=== PATIENT | male | born 1965 | race Caucasian/White ===

== ENCOUNTER 2019-12-17 17:19 | Outpatient (REF) | payer MEDICAID, SELFPAY ==
[2019-12-17 19:32] LABS: HCT 39.3 % (40.0-50.0); HGB 13.5 g/dL (13.5-17.5); Mean Corp. HGB Concentration 34.4 g/dL (32.0-36.0); Mean Corpuscular Hemoglobin 31.9 pg (27.0-33.0); Mean Corpuscular Volume 92.9 fL (80-95); Mean Platelet Volume 10.5 fL (8.0-11.0); Platelet Count 291 x1000/uL (130-400); RBC 4.23 m/cumm (4.50-6.00); RBC Distribution Width 12.6 % (11.8-14.1); White Blood Cell Count 6.96 k/cumm (4.4-10.8)
[2019-12-17 19:54] LABS: ALT 49 U/L (16-63); AST 41 U/L (15-37); Albumin 3.9 g/dL (3.4-5.0); Alkaline Phosphatase 72 U/L (46-116); Anion Gap 10.2 mmol/L (3-11); BUN 15 mg/dL (7-18); Bilirubin, Total 0.3 mg/dL (0.2-1.0); CO2 26.8 mmol/L (21.0-32.0); CREATININE 1.25 mg/dL (0.70-1.30); Calcium 8.6 mg/dL (8.5-10.1); Chloride 109 mmol/L (98-107); Creatine Kinase 194 U/L (39-308); Estimated GFR 59.97 (mL/min/1.73m2); Glucose 101 mg/dL (74-106); Potassium 4.2 mmol/L (3.5-5.1); Sodium 146 mmol/L (136-145); TSH (W/Ref FT4) 1.48 uIU/mL (0.36-3.74); Total Protein 6.6 g/dL (6.4-8.2)
[2019-12-19 10:07] LABS: Hepatitis C Ab w Rflx HCV PCR Negative (Negative)
[2019-12-19 10:10] LABS: HIV-1/2 Ag & Ab Screen Negative (Negative)
== END 2019-12-17 17:39 ==
LOC: NCHCN 17:19
PROVIDERS: PCP Nurse Practitioner Family; Visit Provider Nurse Practitioner Family
DX: R53.83 Other fatigue (principal); Z11.4 Encounter for screening for human immunodeficiency virus [HIV]; Z11.59 Encounter for screening for other viral diseases
CPT/HCPCS: 80053; 82550; 85027; 86803; 87389; 84443

== ENCOUNTER 2019-12-25 15:39 | Outpatient (REF) | payer MEDICAID, SELFPAY ==
[2019-12-29 13:32] LABS: Lyme Ab w Rflx to Lyme Confirm Negative (Negative)
[2019-12-30 14:52] LABS: Testosterone, Free 5.83 ng/dL (3.87-14.7); Testosterone, Total 265 ng/dL (240-950)
== END 2019-12-25 15:59 ==
LOC: NCHCN 15:39
PROVIDERS: PCP Nurse Practitioner Family; Visit Provider Nurse Practitioner Family
DX: R53.83 Other fatigue (principal); Z86.19 Personal history of other infectious and parasitic diseases
CPT/HCPCS: 84402; 84403; 86618

== ENCOUNTER 2020-03-26 09:08 | Outpatient (CLI) | payer MEDICAID, SELFPAY ==
[2020-03-27 15:51] LABS: COVID-19 RT-PCR UVMMC Result Negative (Negative)
== END 2020-03-26 09:28 ==
PROVIDERS: PCP Nurse Practitioner Family; Visit Provider Nurse Practitioner Family
DX: Z11.59 Encounter for screening for other viral diseases (principal); Z01.818 Encounter for other preprocedural examination
CPT/HCPCS: U0003

== ENCOUNTER 2020-12-17 18:24 | Outpatient (REF) | payer MEDICAID, SELFPAY ==
[2020-12-17 19:07] LABS: TSH (W/Ref FT4) 2.93 uIU/mL (0.36-3.74)
[2020-12-20 05:09] LABS: Vitamin D 25 Total 54.1 ng/ml (30-100)
[2020-12-23 12:35] LABS: Testosterone, Free 8.47 ng/dL (3.87-14.7); Testosterone, Total 292 ng/dL (240-950)
== END 2020-12-17 18:44 ==
LOC: NCHCN 18:24
PROVIDERS: PCP Nurse Practitioner Family; Visit Provider Nurse Practitioner Family
DX: E03.9 Hypothyroidism, unspecified (principal); E55.9 Vitamin D deficiency, unspecified; R53.83 Other fatigue
CPT/HCPCS: 82306; 84402; 84403; 84443

== ENCOUNTER 2021-05-03 18:45 | Outpatient (REF) | payer MEDICAID, SELFPAY ==
[2021-05-03 19:35] LABS: HGB 13.4 g/dL (13.5-17.5); MCH 32.6 pg (27.0-33.0); MCHC 34.4 % (32.0-36.0); MCV 94.9 fL (80-95); MPV 11.1 fL (8.0-11.0); Platelet Count 229 10^3/uL (130-400); RBC 4.11 10^6/uL (4.36-5.78); RDW 12.3 % (11.8-14.1); RDW-SD 43.1 fL; WBC 7.74 10^3/uL (4.4-10.8)
[2021-05-03 19:57] LABS: Anion Gap 8.4 mmol/L (3-11); BUN 22 mg/dL (7-18); CO2 27.6 mmol/L (21.0-32.0); CREATININE 1.5 mg/dL (0.70-1.30); Calcium 9.2 mg/dL (8.5-10.1); Calculated LDL 110 mg/dL (<100); Chloride 106 mmol/L (98-107); Cholesterol 184 mg/dL (<200); Estimated GFR 48.24 (mL/min/1.73m2); Glucose 93 mg/dL (74-106); HDL Cholesterol 61 mg/dL (40-60); Potassium 4.7 mmol/L (3.5-5.1); Sodium 142 mmol/L (136-145); Triglyceride 68 mg/dL (<150)
== END 2021-05-03 18:46 | disposition home or self-care (01) ==
LOC: NCHCN 18:45
PROVIDERS: PCP Nurse Practitioner Family; Visit Provider Nurse Practitioner Family
DX: Z13.220 Encounter for screening for lipoid disorders (principal); Z13.228 Encounter for screening for other metabolic disorders; Z00.00 Encounter for general adult medical examination without abnormal findings
CPT/HCPCS: 80048; 80061; 85027

== ENCOUNTER 2021-05-06 17:54 | Outpatient (REF) | payer MEDICAID, SELFPAY ==
[2021-05-06 19:27] LABS: Iron 92 ug/dL (65-175); Total Iron Binding Capacity 291 ug/dL (250-450); Transferrin Sat 32 % (20-55)
[2021-05-06 19:41] LABS: Ferritin 108 ng/mL (26-388)
[2021-05-09 10:11] LABS: PSA, Screening 0.4 ng/mL (0.0-3.5)
== END 2021-05-06 17:55 | disposition home or self-care (01) ==
LOC: NCHCN 17:54
PROVIDERS: PCP Nurse Practitioner Family; Visit Provider Nurse Practitioner Family
DX: E03.9 Hypothyroidism, unspecified (principal); R53.83 Other fatigue; F32.9 Major depressive disorder, single episode, unspecified; E29.1 Testicular hypofunction; M25.571 Pain in right ankle and joints of right foot; Z12.5 Encounter for screening for malignant neoplasm of prostate
CPT/HCPCS: 84153; 84402; 84403; 82728; 83540; 83550

== ENCOUNTER 2021-08-08 16:32 | Outpatient (REF) | payer MEDICAID, SELFPAY ==
[2021-08-15 13:47] LABS: Testosterone, Free 14.7 ng/dL (3.87-14.7); Testosterone, Total 319 ng/dL (240-950)
== END 2021-08-08 16:33 | disposition home or self-care (01) ==
LOC: NCHCN 16:32
PROVIDERS: PCP Nurse Practitioner Family; Visit Provider Nurse Practitioner Family
DX: E29.1 Testicular hypofunction (principal); F32.9 Major depressive disorder, single episode, unspecified; G47.8 Other sleep disorders
CPT/HCPCS: 84402; 84403

== ENCOUNTER 2021-10-19 10:44 | Emergency (ER) | payer MEDICAID, SELFPAY ==
[2021-10-19 10:50] VITALS: BP 141/68; PULSE 68; RESP 16; TEMP 36.3; O2SAT 99
--- NOTE | 2021-10-19 11:00 | DI.RAD_ITS ---
Exam(s) XR ANKLE RT COMPLETE EXAM: XR ANKLE RT COMPLETE CLINICAL HISTORY: Fall, Swelling. TECHNIQUE: 2D digital imaging was performed of the right ankle. Three images were obtained. AP, la teral and oblique views were obtained. COMPARISON: No exams were available for comparison FINDINGS: BONES: No acute fracture is present. No bony destructive lesion is seen. JOINTS: The ankle mortise is normally aligned. SOFT TISSUE: Normal. IMPRESSION: Unremarkable radiographs of the right ankle. DATA REPOSITORY: RADIATION DOSE DELIVERED:
--- NOTE | 2021-10-19 11:00 | DI.RAD_ITS ---
Exam(s) XR KNEE RT 3V AP,LAT,JO-ANN EXAM: XR KNEE RT 3V AP,LAT,JO-ANN CLINICAL HISTORY: Pain, Fall. TECHNIQUE: 2D digital imaging was performed of the right knee. Three views obtained. AP, PA tunnel and lateral views were obtained. COMPARISON: No exams were available for comparison FINDINGS: BONES: No acute fracture is present. No bony destructive lesion is seen. JOINTS: The knee is normally aligned. No joint effusion is seen. SOFT TISSUE: Normal. IMPRESSION: Unremarkable radiographs of the right knee. DATA REPOSITORY: RADIATION DOSE DELIVERED:
--- NOTE | 2021-10-19 11:00 | DI.RAD_ITS ---
Exam(s) XR KNEE LT 3V AP,LAT,JO-ANN EXAM: XR KNEE LT 3V AP,LAT,JO-ANN CLINICAL HISTORY: Pain, Fall. TECHNIQUE: 2D digital imaging was performed of the left knee. Three images were obtained. AP, PA t unnel and lateral views were obtained. COMPARISON: CR XR KNEE RT 3V AP,LAT,JO-ANN from 10/19/2021 FINDINGS: BONES: No acute fracture is present. No bony destructive lesion is seen. JOINTS: The knee is normally aligned. No joint effusion is seen. SOFT TISSUE: Normal. IMPRESSION: Normal radiographs of the left knee. DATA REPOSITORY: RADIATION DOSE DELIVERED:
--- NOTE | 2021-10-19 11:12 | ED.GENADUL_ITS ---
Discharge Plan Disposition Patient Disposition: HOME Condition: Stable Discharge Details Clinical Impression: Left knee sprain, Mild sprain of right ankle, Fall on and from ladder, initial encounter Primary Care Provider: Nidhi Moss ED Provider: Deja Erickson Home Meds and New Rx's Prescriptions: No Action levothyroxine 100 mcg Tablet 100 mcg PO DAILY RF: 0 bupropion HCl 100 mg Tablet 100 mg PO DAILY RF: 0 fluoxetine [Prozac] 20 mg Capsule 20 mg PO DAILY RF: 0 Discharge Instructions Instructions: Ankle Sprain (ED), Knee Sprain (ED), Fall Prevention (ED) Additional Instructions: X-rays today show no acute abnormalities, effusion or malalignment. Rest, ice, compression, elevation. Wear the splint as directed for comfort. Weight bearing as tolerated. Please take Tylenol or Ibuprofen with food every 4-6 hours as needed for pain and swelling. Follow-up with orthopedics as needed for continued pain. Follow up with primary care provider in 3-5 days. Return to ED sooner if any worsening or concerns. Increase oral fluids. Stand Alone Forms: Work Release Referrals: Nidhi Moss [Primary Care Provider] - Robert Liu MD [ [facility] STAFF PHYSICIAN] - 2 weeks Medical Decision Making 56-year-old male presents to the ER with chief complaint of bilateral knee pain and right ankle pain status post a fall off a ladder yesterday. Patient reports he fell from approximate height of 4 feet landing on his feet and falling backwards. He denies hitting his head or loss of consciousness. He reports being momentarily stunned after fall, he is complaining of left knee pain and swelling and increased pain with weightbearing and flexion. Also complaining of some milder right knee pain and right ankle pain to the lateral malleolus. He did take ibuprofen last night did not take anything this morning prior to arrival. On initial exam he has no obvious deformity. He is alert and oriented x3. No other injuries or associated symptoms noted. X-rays and Tylenol ordered. EXAM: XR KNEE RT 3V AP,LAT,JO-ANN CLINICAL HISTORY: Pain, Fall. TECHNIQUE: 2D digital imaging was performed of the right knee. Three views obtained. AP, PA tunnel and lateral views were obtained. COMPARISON: No exams were available for comparison FINDINGS: BONES: No acute fracture is present. No bony destructive lesion is seen. JOINTS: The knee is normally aligned. No joint effusion is seen. SOFT TISSUE: Normal. IMPRESSION: Unremarkable radiographs of the right knee. EXAM: XR KNEE LT 3V AP,LAT,JO-ANN CLINICAL HISTORY: Pain, Fall. FINDINGS: BONES: No acute fracture is present. No bony destructive lesion is seen. JOINTS: The knee is normally aligned. No joint effusion is seen. SOFT TISSUE: Normal. IMPRESSION: Normal radiographs of the left knee. FINDINGS: BONES: No acute fracture is present. No bony destructive lesion is seen. JOINTS: The ankle mortise is normally aligned. SOFT TISSUE: Normal. IMPRESSION: Unremarkable radiographs of the right ankle. Discussed x-ray results with patient who verbalizes understanding. Patient given a hinged knee brace and Abdiel wrap and a lace up ankle splint. Instructed on home care including RICE procedures and follow-up with Ortho if needed. Patient verbalized understanding. This text was generated using [email or web address] dictation system, please disregard any oddities of phrase or misspellings. HPI General Mode of arrival: ambulatory . Date/Time Provider Initiated Documentation: 10/19/21 10:48 . Limitations to Documentation: no limitations . Information obtained by: patient, RN notes reviewed and old records reviewed . HPI Narrative: 56-year-old male presents to the ER with chief complaint of bilateral knee pain and right ankle pain status post a fall off a ladder yesterday. Patient reports he fell from approximate height of 4 feet landing on his feet and falling backwards. He denies hitting his head or loss of consciousness. He reports being momentarily stunned after fall, he is complaining of left knee pain and swelling and increased pain with weightbearing and flexion. Also complaining of some milder right knee pain and right ankle pain to the lateral malleolus. He did take ibuprofen last night did not take anything this morning prior to arrival. On initial exam he has no obvious deformity. He is alert and oriented x3. No other injuries or associated symptoms noted. Related Data Home Medications Medication Instructions Recorded Confirmed bupropion HCl 100 mg PO DAILY 10/19/21 10/19/21 fluoxetine [Prozac] 20 mg PO DAILY 10/19/21 10/19/21 levothyroxine 100 mcg PO DAILY 10/19/21 10/19/21 Allergies Allergy/AdvReac Type Severity Reaction Status Date / Time No Known Allergies Allergy Unverified 10/19/21 10:57 General Stated Complaint: Orthopedic PALMER: 3 Review of Systems All systems reviewed & are unremarkable except as noted in HPI and below ENT Ears, Nose, Mouth, and Throat: Denies neck pain Musculoskeletal Musculoskeletal: Reports abnormal gait, Denies back pain, Reports arthralgias, Reports joint swelling, Denies neck pain and Denies numbness Neurologic Neurologic: Reports abnormal gait and Denies numbness [facility] Active Problem List (Updated 10/19/21 @ 12:26 by Deja Erickson) Left knee sprain (Acute) Mild sprain of right ankle (Acute) Fall on and from ladder, initial encounter (Acute) Social History Smoking/Tobacco Use Status: Never Smoking risk assessment performed?: Yes Substance use type: does not use Exam Extrem Right lower extremity: knee Details: tenderness; no swelling and ankle Details: tenderness Location: of the lateral malleolus; no ecchymosis Left lower extremity: knee Details: tenderness Location: of the medial joint line and knee ligament exam normal; no abrasions, no lacerations, no ecchymosis, no crepitus, no deformity and no unusual warmth Course Vital Signs Vital signs: Vital Signs Temperature 36.3 C L 10/19/21 10:50 Pulse 68 10/19/21 10:50 Respiratory Rate 16 10/19/21 10:50 Blood Pressure 141/68 H 10/19/21 10:50 Pulse Oximetry 99 10/19/21 10:50 Temperature 36.3 C L 10/19/21 10:50 Temperature Source Skin 10/19/21 10:50 Pulse 68 10/19/21 10:50 Respiratory Rate 16 10/19/21 10:50 Respiratory Effort Non-Labored 10/19/21 10:50 Blood Pressure 141/68 H 10/19/21 10:50 Blood Pressure Position Sitting 10/19/21 10:50 Pulse Oximetry 99 10/19/21 10:50 Oxygen Delivery Method Room Air 10/19/21 10:50 Oxygen Flow Rate 0 10/19/21 10:50 Pain Level 10 10/19/21 10:50
[2021-10-19] MEDS: Acetaminophen 500 MG TAB 1000 MG PO (11:30)
[2021-10-19 12:04] VITALS: BP 120/73; PULSE 58; RESP 20; TEMP 37; O2SAT 97
--- NOTE | 2021-10-19 12:05 | NUR.NOTE ---
Pt return from DI via w/c w/tech, denies complaints at this time, VSS, cont. to monitor.
== END 2021-10-19 12:50 | disposition home or self-care (01) ==
PROVIDERS: Emergency Provider Registered Nurse Emergency; PCP Nurse Practitioner Family
DX: S83.8X2A Sprain of other specified parts of left knee, initial encounter (principal); M25.561 Pain in right knee; S93.491A Sprain of other ligament of right ankle, initial encounter; W11.XXXA Fall on and from ladder, initial encounter
CPT/HCPCS: 29505; 29515; 73562; 99284; 73610; 99283

== ENCOUNTER 2021-11-01 01:07 | Outpatient (CLI) | payer MEDICAID, SELFPAY ==
--- NOTE | 2021-11-01 12:55 | DI.MRI_ITS ---
Exam(s) MR LOWER JOINT LT WO EXAM: MR LOWER JOINT LT WO CLINICAL HISTORY: LEFT KNEE PAIN,internal derangement, m23.92. TECHNIQUE: Multiplanar multisequence MRI was performed. COMPARISON: CR XR KNEE LT 3V AP,LAT,JO-ANN from 10/19/2021 FINDINGS: BONES: There is marked marrow edema seen in the proximal tibia particularly involving the medial tibi al plateau there is a nondisplaced fracture involving the posterior aspect of the medial tibial plate au. JOINTS: Articular cartilage is unremarkable. There is a small amount of fluid in the joint space. TENDONS: Extensor mechanism: Unremarkable. Medial retinaculum: There is mild edema around the medial retinaculum which may represent a sprain. Lateral retinaculum: Unremarkable. Popliteus: Unremarkable. MUSCLES: Unremarkable. MENISCI: There is a tear of the body and posterior horn of the medial meniscus. The lateral meniscus is unremarkable. SOFT TISSUES: There is edema in the soft tissues of the posterior medial knee. No focal fluid collec tion is seen. No soft tissue mass is identified. LIGAMENTS: Anterior Cruciate: There is mild hyperintense signal seen in the anterior cruciate ligament. A sprai n or partial tear cannot be excluded. Posterior Cruciate: Unremarkable. Medial Collateral:There is fluid seen around the medial collateral ligament consistent with a sprain. Lateral Collateral: Unremarkable. OTHER: IMPRESSION: 1. Nondisplaced fracture involving the posterior medial tibial plateau. 2. Tear of the body and posterior horn of the medial meniscus. 3. Sprains involving the anterior cruciate ligament, medial collateral ligament and medial retinaculu m. DATA REPOSITORY:
== END 2021-11-01 01:27 ==
PROVIDERS: PCP Nurse Practitioner Family; Visit Provider Student in an Organized Health Care Education/Training Program
DX: M25.562 Pain in left knee (principal); M23.8X2 Other internal derangements of left knee; S83.242A Other tear of medial meniscus, current injury, left knee, initial encounter; S83.412A Sprain of medial collateral ligament of left knee, initial encounter; S83.512A Sprain of anterior cruciate ligament of left knee, initial encounter; X58.XXXA Exposure to other specified factors, initial encounter
CPT/HCPCS: 73721

== ENCOUNTER 2022-02-14 02:26 | Outpatient (CLI) | payer MEDICAID, SELFPAY ==
[2022-02-14 10:22] LABS: Source Nasal/Nares
[2022-02-14 13:48] LABS: COVID-19 PCR Negative (Negative)
== END 2022-02-14 02:27 | disposition home or self-care (01) ==
LOC: LBO 02:26
PROVIDERS: PCP Nurse Practitioner Family; Visit Provider Student in an Organized Health Care Education/Training Program
DX: Z20.822 Contact with and (suspected) exposure to COVID-19 (principal); Z01.818 Encounter for other preprocedural examination
CPT/HCPCS: 87635

== ENCOUNTER 2022-02-16 07:34 | Day surgery (SDC) | payer MEDICAID, SELFPAY ==
--- NOTE | 2022-02-16 06:41 | W.ANESPRE ---
General Info Date of Service Date Performed: 02/16/22 Height: 6 ft 1 in Weight: 110.223 kg Body Mass Index (BMI): 32.0 Surgical Procedure: Operation Date: 02/16/22 09:40 Proposed Procedure Side Surgeon p Knee Arthroscopy w/indicated Meniscal, Chondral and Synovial surgery Left Robert Liu MD Meds Allergies and Home Medications Allergies Allergy/AdvReac Type Severity Reaction Status Date / Time No Known Allergies Allergy Verified 02/16/22 07:55 Home Medication Medication Instructions Recorded bupropion HCl 100 mg tablet 100 mg PO DAILY 10/19/21 fluoxetine 20 mg capsule (Prozac) 20 mg PO DAILY 10/19/21 levothyroxine 100 mcg tablet 100 mcg PO DAILY 10/19/21 Current Visit Medications: Current Medications Generic Name Dose Route Start Last Admin Trade Name Freq PRN Reason Stop Dose Admin Ringer's Solution 1,000 mls @ 100 mls/hr 02/16/22 06:00 IV 03/17/22 23:59 INFUSION AYAZ Cefazolin Sodium/Dextrose 2 gm in 50 mls @ 100 mls/hr 02/16/22 06:00 Ancef Duplex IVPB 02/16/22 16:00 PREOP AYAZ IV Miscellaneous Supplies 1 each 02/16/22 06:00 Iv Access IV 03/17/22 23:59 DIRECTED AYAZ Sodium Chloride 0 ml 02/16/22 06:00 Normal Saline Flush 10 Ml Syr IV 03/17/22 23:59 PRN PRN Sodium Chloride 0 ml 02/16/22 06:00 Normal Saline 10 Ml Vial IJ 03/17/22 23:59 DIRECTED PRN Sterile Water 0 ml 02/16/22 06:00 Water,Injection,Sterile 10 Ml Vial IJ 03/17/22 23:59 DIRECTED PRN PFSH Active Problems Active Problems: Problem Status Onset Code Acute meniscal injury of left knee 10/18/21 S83.8X2A Tibial plateau fracture, left 10/18/21 S82.142A Medical History Medical History Depression Hypothyroidism Mild sprain of right ankle Tibial plateau fracture, left (10/18/21) Surgical History Surgical History (Updated 02/16/22 @ 07:54 by Shyanne Bill) H/O: vasectomy Tobacco Smoking/Tobacco Use Status: Never Alcohol Alcohol Intake: current Alcohol intake frequency: holidays/special occasions only Substance Use Substance use: Never Substance use type: does not use Vital Signs and Lab Results Lab Results Blood Type / Crossmatch: No Data to Display Complete Blood Count: No Data to Display Complete Metabolic Panel: No Data to Display Liver Function Panel: No Data to Display Coagulation Panel: No Data to Display Cardiac Panel: No Data to Display Arterial Blood Gas: No Data to Display Venous Blood Gas: No Data to Display Pancreas Panel: No Data to Display Thyroid Panel: No Data to Display Infectious Disease: Coronavirus (COVID-19)(PCR) Negative (Negative) 02/14/22 08:25 02/14/22 Coronavirus 2019 Source Nasal/Nares 02/14/22 08:25 02/14/22 Blood Cultures: No Data to Display Toxicology Panel: No Data to Display Anesthesia Assessment and Plan Anesthesia History Personal History: No History of Anesthesia Complications Family History: No Family History of Anesthesia Complications Exercise Tolerance Exercise Tolerance: Metabolic Equivalents>4 Pertinent Negatives Pertinent Negatives: No Symptoms of GERD, No Major Cardiovascular Symptoms or Complaints, No Major Pulmonary Symptoms or Complaints and No History of CVA/TIA Cardiac & Pulmonary Exam Cardiac Exam: Normal S1/S2 Heart Sounds Pulmonary Exam: Clear Bilateral Breath Sounds Implantable Cardiac Device Does patient have a Pacemaker or an ICD?: No Airway Exam Known Difficult Airway: No Mallampati Class: 2 Mouth Opening: Normal (> 3cm) Thyromental Distance: Greater than 3 cm Neck Range of Motion: Full ROM Neck Circumference: Normal Teeth Condition: Normal Dentition ASA Classification ASA Score: ASA 2 Emergency Case?: No NPO Status NPO Status: NPO Clears >2 hours, Solids >8 hours Anesthesia Plan Resuscitation Status: Full Code Anesthesia Technique: Spinal Anesthesia Airway Planned: Natural Airway Monitors Used: Standard Monitors Preoperative Comments:: 56 yo male for knee scope. Sig PMHx: hypothyroid (on replacement).
[2022-02-16 07:48] VITALS: BP 141/69; PULSE 67; RESP 16; TEMP 36.5; O2SAT 97
[2022-02-16] MEDS: Lactated Ringers 1,000 ML 100 ML IV (08:27)
[2022-02-16 08:28] VITALS: BMI 32.0
[2022-02-16] MEDS: ceFAZolin 2 GM/50 ML BAG IVPB (09:33)
[2022-02-16] MEDS: Bupivacaine 0.25% Pres-Free 30 ML VIAL (10:26)
[2022-02-16] MEDS: EPINEPHrine 30 MG/30 ML VIAL (10:27)
[2022-02-16] MEDS: MORPHine 4 MG/ML SYR (10:27)
--- NOTE | 2022-02-16 10:42 | PDOC.DSDIS_ITS ---
Discharge Plan Disposition Patient Disposition: HOME Condition: Stable Discharge Details Reason For Visit: Left knee surgery Attending Provider: Robert Liu Primary Care Provider: Sol Barry Home Meds and New Rx's Prescriptions: New naproxen 250 mg tablet 250 - 500 mg PO BID PRNQty: 40 0RF Rx Instructions: take with a meal oxycodone 5 mg tablet 5 - 10 mg PO Q4H MDD 30 mg PRN (Reason: moderate to severe pain) Qty: 9 0RF aspirin 81 mg tablet,delayed release (DR/EC) 81 mg PO DAILY 14 Days Qty: 14 0RF Continued levothyroxine 100 mcg Tablet 100 mcg PO DAILY 0RF bupropion HCl 100 mg Tablet 100 mg PO DAILY 0RF fluoxetine [Prozac] 20 mg Capsule 20 mg PO DAILY 0RF Discharge Instructions Additional Instructions: Surgery: Left knee arthroscopy with partial medial meniscectomy and minor patellofemoral chondroplasty & synovectomy Activity: Weightbearing as tolerated. Advance range of motion as comfort allows. Recommend avoiding sports, pivoting, and squatting for 6-8 weeks. A physical therapy prescription will be sent electronically to start in about 2 weeks. Prescriptions: Aspirin 81 mg take 1 daily to prevent a blood clot for 14 days Naproxen 250 mg take 1-2 every 12 hours with a meal as needed for moderate pain Oxycodone 5 mg take 1-2 every 4-6 hours as needed for severe pain You may use [id number] Tylenol (acetaminophen) as needed for mild pain. These pain medications may be taken all at once or in different combinations as needed. Also, recommend Colace (docusate) as a stool softener as surgery and pain medicine cause constipation. Dressings: Leave dressing in place for 3 days. May then remove and leave open to air or cover incisions with Band-Aids. May shower after 5 days. Follow-up: 10-[address] Liu Let us know right away if you develop any redness, drainage, fevers, chest pain, or trouble breathing. Do not drink alcohol or drive for at least 24 hours after anesthesia. Please call the office during business hours with any questions or concerns. Referrals: Robert Liu MD [ [facility] STAFF PHYSICIAN] - Discharge Orders Discharge Orders: Discharge Order (Routine); Ordered 02/16/22 Ordered By: Robert Liu DS: Diagnosis Discharge Diagnosis (1) Acute meniscal injury of left knee: Status: Acute
[2022-02-16 10:44] VITALS: BP 128/70; PULSE 65; RESP 18; TEMP 36.2; O2SAT 98
--- NOTE | 2022-02-16 10:47 | ROE_ITS ---
Date of service: 02/16/22 Time of Service: 10:30 Operative Note Operative Note DATE OF PROCEDURE: 02/16/22 PRE-OP DIAGNOSIS: Left knee 1. Medial meniscus tear POST-OP DIAGNOSIS: same Left knee 1. Medial meniscus tear 2. Moderate patellofemoral synovitis 3. Mild patellofemoral chondromalacia PROCEDURE: Left knee 1. Partial medial meniscectomy, CPT #17530 2. Chondroplasty, CPT #44504: Trochlea SURGEON: Robert Liu INTEGRATED PROGRAM TEACHER: None None ANESTHESIA TYPE: Local By Surgeon and Spinal Refer to Anesthesia Record ESTIMATED BLOOD LOSS: 5 PATHOLOGY: none sent TOURNIQUET TIME: 0 COMPLICATIONS: None Patient was transported to: PACU Patient's condition: stable Indications: Please see complete medical record for details. Findings: Exam under anesthesia: Full range of motion, no instability. Stable Nica. Negative pivot shift. Medial compartment mechanical meniscal crepitation with passive range of motion. Arthroscopic findings: Moderate patellofemoral synovitis with medial suprapatellar synovial fold adhesion. Mild central trochlear chondromalacia with softening and free cartilage edges flaps. Very mild distal posterior lateral aspect medial femoral condyle localized chondromalacia. Complex medial meniscus tear involving the posterior horn and body junction with full-thickness extension of the inferior leaflet and moderate intact superior leaflet with radial and horizontal extension and medial body inferior free flap. Stable root. Intact ACL. Intact PCL. Intact lateral compartment and meniscus. Procedure Description: In the operating room, genral anesthesia was induced. The patient was positioned supine on the operating room table. All bony prominences were well- padded. Preoperative antibiotics were administered. The knee was prepped and draped in the usual sterile fashion. The correct patient, procedure, and side of the procedure were all verified prior to incision. Exam under anesthesia was performed. 10 cc of bupivacaine and lidocaine mixture containing epinephrine was infiltrated about the planned anteromedial and anterolateral knee arthroscopy portals. The portals were established and a complete diagnostic arthroscopy was performed with relevant findings detailed above. The mechanical shaver was used to remove pathologic and engaging synovium from the intercondylar and patellofemoral compartments. Using a combination of hand instruments including meniscal biters and a power shaver and working through the anteromedial and anterolateral compartments the meniscus was debrided of all torn tissue to a stable margin. Care was taken to preserve as much meniscus tissue was possible. The meniscal remnant was probed and found to have a stable margin, stable root, and no other tears Mechanical shaver was then used to debride only as much cartilage as necessary remove loose free edges and flaps from the medial femoral condyle and central trochlea. Under direct arthroscopic visualization an 18-gauge needle was passed into the knee from superolateral into the suprapatellar pouch. The knee was copiously irrigated with arthroscopic fluid until there was a clear effluent before being drained of all fluid. The anteromedial and anterolateral portals were closed in 3-0 Monocryl in a buried interrupted fashion. 20 cc of bupivacaine and epinephrine mixture with epinephrine containing 4 mg of morphine was infiltrated into the knee through the previously placed needle. Mastisol, Steri-Strips, and 4 x 4 gauze were applied over the incisions followed by sterile soft roll. The knee was then wrapped gently with an ROSANGELA comressive bandage. The patient awoke from anesthesia without complication and was transferred to the recovery room in a stable condition.
--- NOTE | 2022-02-16 11:06 | W.ANESPOSTOP ---
Postoperative Evaluation Date, Time and Location Date Performed: 02/16/22 Time Performed: 11:06 Patient Location: Day Surgery Unit Vital Signs Most Recent Imported Vital Signs: Most Recent Vital Signs Temp Pulse Resp BP Pulse Ox 36.2 C L 65 18 128/70 98 02/16/22 10:44 02/16/22 10:44 02/16/22 10:44 02/16/22 10:44 02/16/22 10:44 Pain Score Most Recent Pain Score: Most Recent Pain Score Pain Level 0 02/16/22 10:44 Assessment Mental Status: Awake (Alert & Oriented to Patient Baseline) Airway and Respiratory Function: Patent airway with normal (patient baseline) respiratory exam Cardiovascular Function: Hemodynamically Stable Hydration Status: Adequately Hydrated Nausea & Vomiting: No Nausea or Vomiting Pain: Pt. Denies Any Pain Peripheral Nerve Block: Patient did not receive a nerve block
[2022-02-16 11:20] VITALS: BP 125/65; PULSE 65; RESP 16; TEMP 36.5; O2SAT 98
== END 2022-02-16 12:30 | disposition home or self-care (01) ==
PROVIDERS: PCP Nurse Practitioner Family; Visit Provider Student in an Organized Health Care Education/Training Program
PROC: (CPT 29870; principal; 2022-02-16 09:30)
DX: M23.232 Derangement of other medial meniscus due to old tear or injury, left knee (principal); M65.862 Other synovitis and tenosynovitis, left lower leg; M22.42 Chondromalacia patellae, left knee
CPT/HCPCS: 29881; J0690; J1100; J2270; J2405; J2704

== ENCOUNTER 2022-03-22 19:00 | Outpatient (REF) | payer MEDICAID, SELFPAY ==
[2022-03-22 16:52] LABS: Anion Gap 9.8 mmol/L (3-11); BUN 19 mg/dL (7-18); CO2 23.2 mmol/L (21.0-32.0); CREATININE 1.2 mg/dL (0.70-1.30); Calcium 8.3 mg/dL (8.5-10.1); Chloride 106 mmol/L (98-107); Glucose 101 mg/dL (74-106); Potassium 4.4 mmol/L (3.5-5.1); Sodium 139 mmol/L (136-145); TSH (W/Ref FT4) 8.08 uIU/mL (0.36-3.74)
[2022-03-25 15:39] LABS: Testosterone, Free 24.3 ng/dL (3.87-14.7); Testosterone, Total 657 ng/dL (240-950)
== END 2022-03-22 19:01 | disposition home or self-care (01) ==
LOC: NCHCN 19:00
PROVIDERS: PCP Nurse Practitioner Family; Visit Provider Nurse Practitioner Family
DX: R94.4 Abnormal results of kidney function studies (principal); E03.9 Hypothyroidism, unspecified; E29.1 Testicular hypofunction
CPT/HCPCS: 80048; 84402; 84403; 84439; 84443

== ENCOUNTER 2022-08-31 15:39 | Outpatient (REF) | payer MEDICAID, SELFPAY ==
[2022-08-31 18:12] LABS: Abs Immature Grans 0.02 10^3/uL (0.0-0.06); Absolute Basophil Count 0.05 10^3/uL (0.0-0.2); Absolute Eosinophil Count 0.14 10^3/uL (0.0-0.7); Absolute Lymphocyte Count 1.83 10^3/uL (1.2-3.4); Absolute Monocyte Count 0.66 10^3/uL (0.1-0.8); Absolute Neutrophil Count 5.57 10^3/uL (1.2-6.7); Basophils % 0.6; Eosinophils % 1.7; HCT 40.5 % (40.0-50.0); HGB 14.5 g/dL (13.5-17.5); Immature Grans % 0.2; Lymphocytes % 22.1; MCH 32.7 pg (27.0-33.0); MCHC 35.8 % (32.0-36.0); MCV 91 fL (80-95); MPV 10.3 fL (8.0-11.0); Neutrophils % 67.4; Platelet Count 267 10^3/uL (130-400); RBC 4.43 10^6/uL (4.36-5.78); RDW 12.2 % (11.8-14.1); RDW-SD 41.1 fL; WBC 8.27 10^3/uL (4.4-10.8)
[2022-08-31 18:38] LABS: ALT 48 U/L (16-63); AST 50 U/L (15-37); Albumin 3.8 g/dL (3.4-5.0); Alkaline Phosphatase 110 U/L (46-116); Anion Gap 9.9 mmol/L (3-11); BUN 30 mg/dL (7-18); Bilirubin, Total 0.4 mg/dL (0.2-1.0); CO2 24.1 mmol/L (21.0-32.0); CREATININE 1.6 mg/dL (0.70-1.30); Calcium 8.9 mg/dL (8.5-10.1); Chloride 106 mmol/L (98-107); Estimated GFR 49.63 (mL/min/1.73m2); Glucose 105 mg/dL (74-106); Potassium 4.1 mmol/L (3.5-5.1); Sodium 140 mmol/L (136-145); TSH (W/Ref FT4) 1.04 uIU/mL (0.36-3.74); Total Protein 7.2 g/dL (6.4-8.2)
[2022-08-31 18:48] LABS: Vitamin D 25 Total 45.8 ng/mL (30-100)
[2022-09-10 13:59] LABS: Testosterone, Free 25.7 ng/dL (3.87-14.7); Testosterone, Total 789 ng/dL (240-950)
== END 2022-08-31 15:40 | disposition home or self-care (01) ==
LOC: LBN 15:39
PROVIDERS: PCP Nurse Practitioner Family; Visit Provider Registered Nurse
DX: E03.9 Hypothyroidism, unspecified (principal); F32.9 Major depressive disorder, single episode, unspecified
CPT/HCPCS: 80053; 82306; 84402; 84403; 84443; 85025

== ENCOUNTER 2022-11-17 16:59 | Outpatient (REF) | payer MEDICAID, SELFPAY ==
[2022-11-17 18:00] LABS: Calculated LDL 116 mg/dL (<100); Cholesterol 199 mg/dL (<200); HDL Cholesterol 57 mg/dL (40-60); Triglyceride 132 mg/dL (<150)
== END 2022-11-17 17:00 | disposition home or self-care (01) ==
LOC: LBN 16:59
PROVIDERS: PCP Nurse Practitioner Family; Visit Provider Registered Nurse
DX: T88.7XXA Unspecified adverse effect of drug or medicament, initial encounter (principal); F32.9 Major depressive disorder, single episode, unspecified
CPT/HCPCS: 80061

== ENCOUNTER 2022-11-28 01:29 | Outpatient (CLI) | payer MEDICAID, SELFPAY ==
--- NOTE | 2022-11-28 15:21 | DI.RAD_ITS ---
Exam(s) XR THORACIC SPINE COMPLETE EXAM: XR THORACIC SPINE COMPLETE CLINICAL HISTORY: UPPER BACK PAIN, M54.9. TECHNIQUE: 2D digital imaging was performed of the thoracic spine. Three views were obtained. AP, swimmer's and lateral views were obtained. COMPARISON: No exams were available for comparison FINDINGS: BONES: There is no fracture or destructive lesion. There are mild degenerative changes seen in the th oracic spine. DISKS:Alignment is within normal limits. Interverebral disc spaces are maintained. SOFT TISSUE: Visualized lungs are clear. IMPRESSION: Mild degenerative changes of the thoracic spine. DATA REPOSITORY: RADIATION DOSE DELIVERED:
--- NOTE | 2022-11-28 15:21 | DI.RAD_ITS ---
Exam(s) XR SHOULDER RT COMPLETE 2+V EXAM: XR SHOULDER RT COMPLETE 2+V CLINICAL HISTORY: RT SHOULDER PAIN, M25.511,NUMBNESS AND TINGLING,R20.2. TECHNIQUE: 2D digital imaging was performed of the right shoulder. Five images were obtained. AP, Grashey, Y-view and axillary views were obtained. COMPARISON: No exams were available for comparison FINDINGS: BONES: No acute fracture is present. No bony destructive lesion is seen. JOINTS: No dislocation present. There are mild degenerative changes of the AC joint. SOFT TISSUE: Normal. IMPRESSION: Degenerative changes of the right AC joint. DATA REPOSITORY: RADIATION DOSE DELIVERED:
--- NOTE | 2022-11-28 15:21 | DI.RAD_ITS ---
Exam(s) XR CERVICAL SPINE COMP 4-5V EXAM: XR CERVICAL SPINE COMP 4-5V CLINICAL HISTORY: UPPER BACK PAIN, M54.9,NUMBNESS AND TINGLING,R20.2. TECHNIQUE: 2D digital imaging was performed. Eight images were obtained. AP, odontoid, lateral and b ilateral oblique images were obtained. COMPARISON: No exams were available for comparison FINDINGS: The odontoid is intact. The lateral masses are well aligned. There is normal alignment of the cervi felix spine. Small endplate osteophytes and disc space narrowing is seen at C5-6 and C6-C7. No acute fr acture or subluxation is present. No significant neural foraminal stenosis is present. The cervical thoracic junction is well maintained. The prevertebral soft tissues are unremarkable. Lung apices ar e clear. IMPRESSION: Mild degenerative changes of the cervical spine. DATA REPOSITORY: RADIATION DOSE DELIVERED:
== END 2022-11-28 01:49 ==
LOC: DI 01:29
PROVIDERS: PCP Nurse Practitioner Family; Visit Provider Nurse Practitioner Family
DX: M47.814 Spondylosis without myelopathy or radiculopathy, thoracic region (principal); M47.812 Spondylosis without myelopathy or radiculopathy, cervical region; M19.011 Primary osteoarthritis, right shoulder
CPT/HCPCS: 72050; 72072; 73030

== ENCOUNTER 2023-03-08 18:41 | Outpatient (REF) | payer MEDICAID, SELFPAY ==
[2023-03-15 15:17] LABS: Testosterone, Free 9.14 ng/dL (3.87-14.7); Testosterone, Total 318 ng/dL (240-950)
== END 2023-03-08 18:42 | disposition home or self-care (01) ==
LOC: NCHCN 18:41
PROVIDERS: PCP Nurse Practitioner Family; Visit Provider Registered Nurse
DX: E29.1 Testicular hypofunction (principal)
CPT/HCPCS: 84402; 84403

== ENCOUNTER 2023-04-24 21:02 | Outpatient (REF) | payer MEDICAID, SELFPAY ==
[2023-04-25 12:15] LABS: Abs Immature Grans 0.03 10^3/uL (0.0-0.06); Absolute Basophil Count 0.06 10^3/uL (0.0-0.2); Absolute Eosinophil Count 0.09 10^3/uL (0.0-0.7); Absolute Lymphocyte Count 1.23 10^3/uL (1.2-3.4); Absolute Monocyte Count 0.55 10^3/uL (0.1-0.8); Absolute Neutrophil Count 7.76 10^3/uL (1.2-6.7); Basophils % 0.6; Eosinophils % 0.9; HCT 44.7 % (40.0-50.0); HGB 15.6 g/dL (13.5-17.5); Immature Grans % 0.3; Lymphocytes % 12.7; MCH 32.4 pg (27.0-33.0); MCHC 34.9 % (32.0-36.0); MCV 93 fL (80-95); MPV 10.7 fL (8.0-11.0); Monocytes % 5.7; Neutrophils % 79.8; Platelet Count 270 10^3/uL (130-400); RBC 4.81 10^6/uL (4.36-5.78); RDW 11.9 % (11.8-14.1); RDW-SD 41.1 fL; WBC 9.72 10^3/uL (4.4-10.8)
[2023-04-25 12:31] LABS: ALT 49 U/L (16-63); AST 33 U/L (15-37); Albumin 3.9 g/dL (3.4-5.0); Alkaline Phosphatase 80 U/L (46-116); BUN 25 mg/dL (7-18); Bilirubin, Total 0.4 mg/dL (0.2-1.0); CREATININE 1.5 mg/dL (0.70-1.30); Calcium 9.4 mg/dL (8.5-10.1); Chloride 105 mmol/L (98-107); Glucose 96 mg/dL (74-106); Potassium 4.4 mmol/L (3.5-5.1); Sodium 139 mmol/L (136-145); TSH (W/Ref FT4) 1.52 uIU/mL (0.36-3.74); Total Protein 7.4 g/dL (6.4-8.2)
[2023-04-25 12:40] LABS: Hemoglobin A1C 5.1 % (<5.7)
== END 2023-04-24 21:03 | disposition home or self-care (01) ==
LOC: NCHCN 21:02
PROVIDERS: PCP Nurse Practitioner Family; Visit Provider Registered Nurse
DX: F32.89 Other specified depressive episodes (principal); F41.8 Other specified anxiety disorders; E03.9 Hypothyroidism, unspecified; R79.89 Other specified abnormal findings of blood chemistry
CPT/HCPCS: 80053; 83036; 84443; 85025

== ENCOUNTER 2023-07-30 17:47 | Outpatient (REF) | payer MEDICAID, SELFPAY ==
[2023-07-30 18:38] LABS: Albumin 3.9 g/dL (3.4-5.0); BUN 29 mg/dL (7-18); CREATININE 1.3 mg/dL (0.70-1.30); Calcium 9.3 mg/dL (8.5-10.1); Chloride 104 mmol/L (98-107); Estimated GFR 63.28 (mL/min/1.73m2); Glucose 89 mg/dL (74-106); PHOSPHORUS 2.9 mg/dL (2.6-4.7); Potassium 4.6 mmol/L (3.5-5.1); Sodium 140 mmol/L (136-145)
== END 2023-07-30 17:48 | disposition home or self-care (01) ==
LOC: NCHCN 17:47
PROVIDERS: PCP Nurse Practitioner Family; Visit Provider Nurse Practitioner Psychiatric/Mental Health
DX: R94.4 Abnormal results of kidney function studies (principal)
CPT/HCPCS: 80069

== ENCOUNTER 2023-11-23 08:46 | Outpatient (REF) | payer MEDICARE, BC, MEDICAID, SELFPAY ==
[2023-11-23 16:22] LABS: Abs Immature Grans 0.02 10^3/uL (0.0-0.06); Absolute Basophil Count 0.04 10^3/uL (0.0-0.2); Absolute Eosinophil Count 0.12 10^3/uL (0.0-0.7); Absolute Lymphocyte Count 1.94 10^3/uL (1.2-3.4); Absolute Monocyte Count 0.54 10^3/uL (0.1-0.8); Absolute Neutrophil Count 3.99 10^3/uL (1.2-6.7); Basophils % 0.6; Eosinophils % 1.8; HCT 42.8 % (40.0-50.0); Immature Grans % 0.3; Lymphocytes % 29.2; MCH 32.3 pg (27.0-33.0); MCV 92 fL (80-95); MPV 11.1 fL (8.0-11.0); Monocytes % 8.1; Platelet Count 255 10^3/uL (130-400); RBC 4.65 10^6/uL (4.36-5.78); RDW 12.3 % (11.8-14.1); RDW-SD 41.7 fL; WBC 6.65 10^3/uL (4.4-10.8)
[2023-11-23 16:41] LABS: ALT 25 U/L (16-63); AST 18 U/L (15-37); Albumin 3.9 g/dL (3.4-5.0); Alkaline Phosphatase 72 U/L (46-116); Anion Gap 3.4 mmol/L (3-11); BUN 26 mg/dL (7-18); Bilirubin, Total 0.7 mg/dL (0.2-1.0); CO2 29.6 mmol/L (21.0-32.0); CREATININE 1.3 mg/dL (0.70-1.30); Calcium 9.5 mg/dL (8.5-10.1); Chloride 106 mmol/L (98-107); Estimated GFR 63.28 (mL/min/1.73m2); Glucose 105 mg/dL (74-106); Potassium 4.8 mmol/L (3.5-5.1); Sodium 139 mmol/L (136-145); TSH 1.43 uIU/mL (0.36-3.74); Total Protein 7.1 g/dL (6.4-8.2)
[2023-11-23 17:34] LABS: Hemoglobin A1C 5.2 % (<5.7)
[2023-12-03 13:37] LABS: Testosterone, Free 16.2 ng/dL (3.87-14.7); Testosterone, Total 378 ng/dL (240-950)
== END 2023-11-23 08:47 | disposition home or self-care (01) ==
LOC: NCHCN 08:46
PROVIDERS: PCP Nurse Practitioner Family; Visit Provider Nurse Practitioner Family
DX: R53.83 Other fatigue (principal); E03.9 Hypothyroidism, unspecified; R79.89 Other specified abnormal findings of blood chemistry
CPT/HCPCS: 80053; 84402; 84403; 83036; 84443; 85025

== ENCOUNTER 2024-06-03 15:09 | Outpatient (REF) | payer MEDICARE, BC, MEDICAID, SELFPAY ==
[2024-06-03 19:34] LABS: Abs Immature Grans 0.02 10^3/uL (0.0-0.06); Absolute Basophil Count 0.04 10^3/uL (0.0-0.2); Absolute Eosinophil Count 0.06 10^3/uL (0.0-0.7); Absolute Lymphocyte Count 1.48 10^3/uL (1.2-3.4); Absolute Monocyte Count 0.52 10^3/uL (0.1-0.8); Basophils % 0.7 %; HCT 41.5 % (40.0-50.0); HGB 14.5 g/dL (13.5-17.5); Immature Grans % 0.3 %; Lymphocytes % 24.2 %; MCH 31.4 pg (27.0-33.0); MCHC 34.9 % (32.0-36.0); MCV 90 fL (80-95); Monocytes % 8.5 %; Neutrophils % 65.3 %; Platelet Count 245 10^3/uL (130-400); RBC 4.62 10^6/uL (4.36-5.78); RDW 13.1 % (11.8-14.1); RDW-SD 42.8 fL; WBC 6.12 10^3/uL (4.4-10.8)
[2024-06-03 20:00] LABS: ALT 27 U/L (16-63); AST 31 U/L (15-37); Albumin 3.7 g/dL (3.4-5.0); Alkaline Phosphatase 69 U/L (46-116); Anion Gap 5.5 mmol/L (3-11); BUN 25 mg/dL (7-18); Bilirubin, Total 0.62 mg/dL (0.2-1.0); CO2 26.5 mmol/L (21.0-32.0); CREATININE 1.3 mg/dL (0.70-1.30); Calcium 8.8 mg/dL (8.5-10.1); Chloride 107 mmol/L (98-107); Estimated GFR 62.89 (mL/min/1.73m2); FREE T4 1.11 ng/dL (0.76-1.46); Glucose 87 mg/dL (74-106); Potassium 5.2 mmol/L (3.5-5.1); Sodium 139 mmol/L (136-145); TSH 0.09 uIU/Ml (0.36-3.74); Total Protein 6.9 g/dL (6.4-8.2)
[2024-06-09 14:54] LABS: Testosterone, Free 10.4 ng/dL (3.67-13.9); Testosterone, Total 338 ng/dL (240-950)
== END 2024-06-03 15:10 | disposition home or self-care (01) ==
LOC: NCHCN 15:09
PROVIDERS: PCP Nurse Practitioner Family; Visit Provider Nurse Practitioner Family
DX: E03.8 Other specified hypothyroidism (principal); F41.8 Other specified anxiety disorders; E29.1 Testicular hypofunction
CPT/HCPCS: 80053; 84402; 84403; 84439; 84443; 85025

== ENCOUNTER 2024-10-13 12:08 | Outpatient (REF) | payer MEDICARE, BC, MEDICAID, SELFPAY ==
[2024-10-13 18:48] LABS: FREE T4 0.78 ng/dL (0.76-1.46); Folate 7.5 ng/mL (8.6-20.0); TSH 0.89 uIU/mL (0.36-3.74); Vitamin B12 858 pg/mL (193-986); Vitamin D 25 Total 34.9 ng/mL (30-100)
== END 2024-10-13 12:09 | disposition home or self-care (01) ==
LOC: NCHCN 12:08
PROVIDERS: PCP Nurse Practitioner Family; Visit Provider Nurse Practitioner Family
DX: F33.9 Major depressive disorder, recurrent, unspecified (principal); E03.9 Hypothyroidism, unspecified; E29.1 Testicular hypofunction; F41.9 Anxiety disorder, unspecified
CPT/HCPCS: 82306; 82607; 82746; 84439; 84443

== ENCOUNTER 2025-01-19 10:54 | Outpatient (REF) | payer MEDICARE, BC, MEDICAID, SELFPAY ==
[2025-01-19 17:16] LABS: Folate > 20.0 ng/mL (8.6-20.0); Vitamin D 25 Total 41.2 ng/mL (30-100)
[2025-01-25 14:32] LABS: Testosterone, Free 4.05 ng/dL (3.67-13.9); Testosterone, Total 186 ng/dL (240-950)
== END 2025-01-19 10:55 | disposition home or self-care (01) ==
LOC: NCHCN 10:54
PROVIDERS: PCP Nurse Practitioner Family; Visit Provider Nurse Practitioner Family
DX: E55.9 Vitamin D deficiency, unspecified (principal); E53.8 Deficiency of other specified B group vitamins
CPT/HCPCS: 82306; 84402; 84403; 82746

== ENCOUNTER 2025-08-04 15:02 | Outpatient (REF) | payer MEDICARE, BC, SELFPAY ==
[2025-08-04 14:46] LABS: HCT 40.3 % (40.0-50.0); HGB 13.9 g/dL (13.5-17.5); MCH 32.3 pg (27.0-33.0); MCHC 34.5 % (32.0-36.0); MCV 94 fL (80-95); MPV 11.9 fL (8.0-11.0); Platelet Count 207 10^3/uL (130-400); RBC 4.30 10^6/uL (4.36-5.78); RDW 13.5 % (11.8-14.1); RDW-SD 46.5 fL; WBC 5.23 10^3/uL (4.4-10.8)
[2025-08-04 15:42] LABS: ALT 53 U/L (16-63); AST 43 U/L (15-37); Albumin 3.8 g/dL (3.4-5.0); Alkaline Phosphatase 66 U/L (46-116); Anion Gap 7.6 mmol/L (3-11); BUN 30 mg/dL (7-18); Bilirubin, Total 0.5 mg/dL (0.2-1.0); CO2 28.4 mmol/L (21.0-32.0); Calcium 9.2 mg/dL (8.5-10.1); Chloride 107 mmol/L (98-107); Estimated GFR 62.50 (mL/min/1.73m2); Glucose 89 mg/dL (74-106); Potassium 4.8 mmol/L (3.5-5.1); Sodium 143 mmol/L (136-145); TSH 2.75 uIU/mL (0.36-3.74); Total Protein 6.5 g/dL (6.4-8.2)
[2025-08-05 09:26] LABS: PSA, Diagnostic 0.7 ng/mL (<=4.5)
[2025-08-05 14:46] LABS: Hemoglobin A1C 5.1 % (<5.7)
[2025-08-12 19:26] LABS: Testosterone, Free 97.8 pg/mL (35.0-155.0)
== END 2025-08-04 15:03 | disposition home or self-care (01) ==
LOC: NCHCN 15:02
PROVIDERS: PCP Nurse Practitioner Family; Visit Provider Nurse Practitioner Family
DX: Z79.890 Hormone replacement therapy (principal); E29.1 Testicular hypofunction; E03.9 Hypothyroidism, unspecified
CPT/HCPCS: 80053; 84402; 84403; 85027; 83036; 84153; 84443

== ENCOUNTER 2025-10-06 12:51 | Outpatient (REF) | payer MEDICARE, BC, SELFPAY ==
[2025-10-06 16:40] LABS: Cholesterol 152 mg/dL (<200); HDL Cholesterol 70 mg/dL (>40)
== END 2025-10-06 12:52 | disposition home or self-care (01) ==
LOC: NCHCN 12:51
PROVIDERS: PCP Nurse Practitioner Family; Visit Provider Nurse Practitioner Family
DX: E29.1 Testicular hypofunction (principal); Z79.890 Hormone replacement therapy
CPT/HCPCS: 80061